=== PATIENT | male | born 1950 | race Caucasian/White ===

== ENCOUNTER → 2017-03-03 | Outpatient (CLI) | payer OTHER, MEDICARE ==
[~2017-03-03] MED LIST: ASPI-556 PO; OMEG1CAP12 PO; RANI150T7 PO
[2017-03-03 12:45] LABS: BASOPHILS # (AUTO) 0.02 K/uL (0.00-0.20); BASOPHILS % (AUTO) 0.3 % (0.0-2.0); EOSINOPHILS # (AUTO) 0.06 K/uL (0.00-0.70); EOSINOPHILS % (AUTO) 1.15 % (1.0-6.0); HEMOGLOBIN 14.4 g/dL (13.5-17.5); LYMPHOCYTES # (AUTO) 2.1 K/uL (1.0-4.8); LYMPHOCYTES % (AUTO) 40.1 % (22.0-44.0); MEAN CORPUSCULAR HEMOGLOBIN 34.1 pg (26.0-34.0); MEAN CORPUSCULAR HGB CONC 32.8 G/dL (31.0-37.0); MEAN CORPUSCULAR VOLUME 104 fL (80-100); MONOCYTES # (AUTO) 0.5 K/uL (0.1-1.0); MONOCYTES % (AUTO) 9.9 % (2.0-9.0); NEUTROPHILS # (AUTO) 2.6 K/uL (1.8-7.7); NEUTROPHILS % (AUTO) 48.4 % (40.0-70.0); PLATELET COUNT (AUTO) 137 K/uL (150-450); RED BLOOD CELL COUNT(AUTO) 4.24 MIL/uL (4.50-5.90); RED CELL DISTRIBUTION WIDTH 15.9 % (11.5-14.5); WHITE BLOOD COUNT (AUTO) 5.3 K/uL (4.5-11.0)
[2017-03-03 13:01] LABS: APPEARANCE,URINE CLEAR (CLEAR); GLUCOSE, URINE (UA) NEGATIVE (NEGATIVE); KETONES,URINE NEGATIVE (NEGATIVE); LEUKOCYTE ESTERASE ,URINE TRACE (NEGATIVE); OCCULT BLOOD,URINE NEGATIVE (NEGATIVE); PROTEIN,URINE NEGATIVE (NEGATIVE)
[2017-03-03 13:17] LABS: ALANINE AMINOTRANSFERASE 54 U/L (12-78); ALBUMIN 4.1 g/dL (3.4-5.0); ANION GAP 7 mmol/L (8-16); ASPARTATE AMINOTRANSFERASE 30 U/L (15-37); BILIRUBIN,TOTAL 1.1 mg/dL (0.1-1.0); CALCIUM, TOTAL 9.3 mg/dL (8.8-10.5); CARBON DIOXIDE 28 mmol/L (22-29); CHLORIDE 104 mmol/L (98-107); CHOL/HDL RATIO 3.6 (4.2-7.3); CREATININE 1.03 mg/dL (0.60-1.30); GLOMERULAR FILTR. RATE CALC > 60 mL/min (>60); POTASSIUM 4.3 mmol/L (3.5-5.1); SODIUM SERUM 139 mmol/L (136-145); THYROID STIMULATING HORMONE 2.62 uIU/mL (0.36-3.74); TOTAL PROTEIN, SERUM 7.4 g/dL (6.4-8.2); UREA NITROGEN, BLOOD 18 mg/dL (7-18)
[2017-03-03 13:42] LABS: RBC MORPHOLOGY COMMENT ABNORMAL RBC MORPH
[2017-03-03 13:58] LABS: RBC,URINE None Seen /HPF (0-2); SQUAMOUS EPITHELIAL CELL,UR Rare /LPF (None Seen)
[2017-03-04 15:30] LABS: CREATININE, URINE (mALB) 173.8 mg/dL (Not Estab.)
== END | disposition home or self-care (01) ==
LOC: LABPV 12:24
PROVIDERS: ATTEND Internal Medicine Cardiovascular Disease
DX: Z01.812 Encounter for preprocedural laboratory examination (principal); Z13.29 Encounter for screening for other suspected endocrine disorder; Z13.0 Encounter for screening for diseases of the blood and blood-forming organs and certain disorders involving the immune mechanism; Z13.228 Encounter for screening for other metabolic disorders; E78.00 Pure hypercholesterolemia, unspecified
CPT/HCPCS: 82043; 82570; 84443

== ENCOUNTER → 2017-03-10 | Outpatient (CLI) | payer OTHER, MEDICARE ==
[~2017-03-10] MED LIST changes: +SESTAMIBI TC99M/UD ISOTOPE 1 EA INJ INJ ONE
[2017-03-10 11:00] VITALS: BP 161/85
[2017-03-10 11:49] VITALS: BP 184/84
== END | disposition home or self-care (01) ==
LOC: CARDMN 10:26
PROVIDERS: ATTEND Internal Medicine Cardiovascular Disease
DX: Z01.818 Encounter for other preprocedural examination (principal)
CPT/HCPCS: 78452; 93017; 93306; A9500

== ENCOUNTER → 2017-05-31 | Outpatient (CLI) | payer OTHER, MEDICARE ==
[~2017-05-31] MED LIST changes: -SESTAMIBI TC99M/UD ISOTOPE 1 EA INJ INJ ONE
== END | disposition home or self-care (01) ==
LOC: RADMN 12:48
PROVIDERS: ATTEND Surgery
DX: K57.30 Diverticulosis of large intestine without perforation or abscess without bleeding (principal); N28.1 Cyst of kidney, acquired; N40.0 Benign prostatic hyperplasia without lower urinary tract symptoms; K76.89 Other specified diseases of liver; K81.1 Chronic cholecystitis; M48.56XA Collapsed vertebra, not elsewhere classified, lumbar region, initial encounter for fracture; Z90.49 Acquired absence of other specified parts of digestive tract
CPT/HCPCS: 74177